=== PATIENT | female | born 1955 | race Caucasian/White ===

== ENCOUNTER 2023-05-29 17:15 | Emergency (ER) | payer MEDICARE, OTHER ==
[~2023-05-29] VITALS: Ht 170.2 cm; Wt 54.4 kg
[2023-05-29] MEDS ORDERED: ACETAMINOPHEN ES 500 MG TABLET ONE (17:43)
[2023-05-29] MEDS ORDERED: ACETAMINOPHEN ES 500 MG TABLET PO ONE (18:00)
[2023-05-29] MEDS ORDERED: IBUP-1953 PO ×2 (19:14→19:27)
[2023-05-29 19:39] VITALS: BP 148/89; TEMP 98.3; O2SAT 99
== END 2023-05-29 19:40 | disposition home or self-care (01) ==
LOC: ER 17:55
DX: S13.4XXA Sprain of ligaments of cervical spine, initial encounter (principal); S00.03XA Contusion of scalp, initial encounter; S09.90XA Unspecified injury of head, initial encounter; I10 Essential (primary) hypertension; W01.0XXA Fall on same level from slipping, tripping and stumbling without subsequent striking against object, initial encounter; Y93.89 Activity, other specified; Y92.89 Other specified places as the place of occurrence of the external cause; Y99.8 Other external cause status
CPT/HCPCS: 70450-TC; 72125-TC